=== PATIENT | male | born 1960 | race Caucasian/White ===

== ENCOUNTER 2016-11-09 16:47 | Emergency (ER) | payer MEDICAID ==
[~2016-11-09] VITALS: Ht 177.8 cm; Wt 92.6 kg
[~2016-11-09 16:47] MED LIST: ALPR0.5T6 PO; ASPI-496 PO; ATOR-2 PO; CHOL100012 PO; FLUO15CR2 TP; HYDR-3237 PO; LISI2.5T PO; METO25TA35 PO; PRAS10TA4 PO; TRAM50TA2 PO; VARE1TAB21 PO
[2016-11-09] MEDS ORDERED: OXYMETAZOLINE NASAL SPRAY 0.05%, 15ML NAS ONE (17:00)
[2016-11-09] MEDS ORDERED: SODIUM CHLORIDE FLUSH 10ML SYR IVF ONE (17:00)
[2016-11-09] MEDS ORDERED: OXYMETAZOLINE NASAL SPRAY 0.05%, 15ML ONE (17:11)
[2016-11-09] MEDS ORDERED: CLOP75TA52 PO (17:17)
[2016-11-09 17:18] LABS: HEMATOCRIT 45.9 % (39.2-51.8); HEMOGLOBIN 15.5 g/dL (13.7-18.0); WHITE BLOOD COUNT 15.3 x10^3/uL (3.4-10)
[2016-11-09 17:26] LABS: BLOOD UREA NITROGEN 25 mg/dL (7-18)
[2016-11-09 17:59] VITALS: BP 111/77
== END 2016-11-09 18:04 | disposition home or self-care (01) ==
LOC: ED 17:58
DX: R04.0 Epistaxis (principal); E78.5 Hyperlipidemia, unspecified; I11.0 Hypertensive heart disease with heart failure; I50.9 Heart failure, unspecified
CPT/HCPCS: 30901; 36415; 80048; 81003; 82040; 85025; 85610; 85730

== ENCOUNTER 2016-11-30 14:05 | Emergency (ER) | payer MEDICAID ==
[~2016-11-30] VITALS: Ht 177.8 cm; Wt 90.1 kg
[~2016-11-30 14:05] MED LIST changes: +CLOP75TA52 PO
[2016-11-30 15:18] LABS: HEMATOCRIT 45.3 % (39.2-51.8); WHITE BLOOD COUNT 10.8 x10^3/uL (3.4-10)
[2016-11-30] MEDS ORDERED: BACITRACIN ZINC OINT 500U/GM, 0.9 GM ONE (16:25)
[2016-11-30 16:35] VITALS: BP 95/55
== END 2016-11-30 16:38 | disposition home or self-care (01) ==
LOC: ED 16:31
DX: R31.0 Gross hematuria (principal); E78.5 Hyperlipidemia, unspecified; I10 Essential (primary) hypertension; Z95.0 Presence of cardiac pacemaker
CPT/HCPCS: 36415; 76770; 81001; 85025; 87086; 99285

== ENCOUNTER 2016-12-04 22:28 | Inpatient (IN) | payer MEDICAID ==
[~2016-12-04] VITALS: Ht 177.8 cm; Wt 88.5 kg
[2016-12-04] MEDS ORDERED: HYDROmorphone 1 MG/ML, 1ML ONE (22:44)
[2016-12-04] MEDS ORDERED: ONDANSETRON 2MG/ML, 2ML ONE (22:44)
[2016-12-04] MEDS ORDERED: FLUO10CA7 PO (22:53)
[2016-12-04 22:54] LABS: HEMATOCRIT 43.6 % (39.2-51.8); HEMOGLOBIN 14.6 g/dL (13.7-18.0); WHITE BLOOD COUNT 16.8 x10^3/uL (3.4-10)
[2016-12-04] MEDS ORDERED: ONDANSETRON 2MG/ML, 2ML IVPush ONE (23:00)
[2016-12-04] MEDS ORDERED: HYDROmorphone 1 MG/ML, 1ML IVPush PRN (23:00)
[2016-12-04 23:04] LABS: BLOOD UREA NITROGEN 19 mg/dL (7-18)
[2016-12-05] MEDS ORDERED: FENTANYL PF 100 MCG/2ML ONE ×2 (00:23→13:28)
[2016-12-05] MEDS ORDERED: FENTANYL PF 100 MCG/2ML IV ONE (00:30)
[2016-12-05] MEDS ORDERED: SODIUM CHLORIDE 0.9%, 500ML IVBOLUS ONE (00:30)
[2016-12-05] MEDS ORDERED: ONDANSETRON 2MG/ML, 2ML IVPush PRN ×2 (03:00→14:00)
[2016-12-05] MEDS ORDERED: ACETAMINOPHEN 325 MG TABLET PO PRN ×2 (03:00→14:00)
[2016-12-05] MEDS ORDERED: OXYcodone IR 5MG TABLET PO PRN (03:00)
[2016-12-05] MEDS ORDERED: TAMSULOSIN 0.4 MG CAP.ER.24H PO ONE (03:30)
[2016-12-05] MEDS ORDERED: TAMSULOSIN 0.4 MG CAP.ER.24H ONE ×2 (03:31)
[2016-12-05] MEDS: morphine SULFATE 10 MG/ML, 1ML IVPush PRN ×3 (05:03→12:33)
[2016-12-05] MEDS: LACTATED RINGERS 1,000 ML IV SCH ×2 (05:03→13:00)
[2016-12-05 05:08] VITALS: BP 105/66
[2016-12-05 07:30] VITALS: BP 98/65
[2016-12-05] MEDS ORDERED: METOPROLOL TARTRATE 25 MG TABLET PO SCH (09:00)
[2016-12-05 11:27] LABS: HEMATOCRIT 40.4 % (39.2-51.8); HEMOGLOBIN 13.3 g/dL (13.7-18.0); WHITE BLOOD COUNT 13.4 x10^3/uL (3.4-10)
[2016-12-05 11:38] LABS: BLOOD UREA NITROGEN 20 mg/dL (7-18)
[2016-12-05 12:43] LABS: PATH.CAST-FLAG NOT PRESENT; SPERM-FLAG NOT PRESENT; SRC-FLAG NOT PRESENT; XTAL-FLAG NOT PRESENT; YLC-FLAG NOT PRESENT
[2016-12-05] MEDS ORDERED: MIDAZOLAM 1 MG/ML, 2ML ONE (13:28)
[2016-12-05] MEDS ORDERED: PROPOFOL 10 MG/ML, 20ML ONE (13:29)
[2016-12-05] MEDS ORDERED: ONDANSETRON 2MG/ML, 2ML ONE (13:29)
[2016-12-05] MEDS ORDERED: LIDOCAINE-MPF 2% ,5ML ONE (13:29)
[2016-12-05] MEDS ORDERED: DEXAMETHASONE 4 MG/ML, 1ML ONE (13:29)
[2016-12-05] MEDS ORDERED: CEFAZOLIN 1,000 MG ONE (13:29)
[2016-12-05] MEDS ORDERED: PROMETHAZINE 25 MG/ML, 1ML IV PRN (14:00)
[2016-12-05] MEDS ORDERED: OXYcodone 5 MG/5 ML ORAL.SOL UDC PO PRN (14:00)
[2016-12-05] MEDS ORDERED: FENTANYL PF 100 MCG/2ML IV PRN (14:00)
[2016-12-05] MEDS ORDERED: MEPERIDINE/PF 25MG/0.5ML IVPush PRN (14:00)
[2016-12-05] MEDS ORDERED: hydrALAzine 20 MG/ML, 1ML IV PRN (14:00)
[2016-12-05] MEDS ORDERED: HYDROmorphone 1 MG/ML, 1ML IV PRN (14:00)
[2016-12-05] MEDS ORDERED: LABETALOL 5MG/ML, 20ML IV PRN (14:00)
[2016-12-05 15:59] VITALS: BP 97/62
[2016-12-05] MEDS ORDERED: PHENAZOPYRIDINE 200 MG TABLET PO PRN (16:30)
== END 2016-12-05 19:42 | disposition home or self-care (01) | DRG 669 ==
LOC: ED 23:20 → SUATTDRO 12-05 02:33 → EDIP 12-05 02:35 → 4WST 12-05 04:15
PROVIDERS: ADMIT Hospitalist; ATTEND Hospitalist
PROC: 0TC78ZZ Extirpation of Matter from Left Ureter, Via Natural or Artificial Opening Endoscopic (ICD-10-PCS; 2016-12-05)
PROC: 0T778DZ Dilation of Left Ureter with Intraluminal Device, Via Natural or Artificial Opening Endoscopic (ICD-10-PCS; 2016-12-05)
PROC: 0T9B70Z Drainage of Bladder with Drainage Device, Via Natural or Artificial Opening (ICD-10-PCS; principal; 2016-12-05 13:30)
DX: N13.2 Hydronephrosis with renal and ureteral calculous obstruction (principal); I11.0 Hypertensive heart disease with heart failure; I50.9 Heart failure, unspecified; Z86.74 Personal history of sudden cardiac arrest; E78.5 Hyperlipidemia, unspecified; I25.5 Ischemic cardiomyopathy; Z72.0 Tobacco use; Z95.0 Presence of cardiac pacemaker; Z95.810 Presence of automatic (implantable) cardiac defibrillator
CPT/HCPCS: 36415; 74176; 80048; 81001; 82040; 82360; 85025; 87086; 88300; 96361; 96374; 96375; J0690; J1100; J1170; J2250; J2405; J2704; J3010; J3490; C1758; C1769; C2617; J2270; J7040; J7120

== ENCOUNTER → 2018-03-26 | Outpatient (CLI) | payer MEDICARE ==
[~2018-03-26] MED LIST changes: +FLUO10CA7 PO
== END | disposition home or self-care (01) ==
LOC: CFH 09:35
PROVIDERS: ATTEND Internal Medicine Cardiovascular Disease
DX: I25.5 Ischemic cardiomyopathy (principal); I25.10 Atherosclerotic heart disease of native coronary artery without angina pectoris; I25.2 Old myocardial infarction; E78.5 Hyperlipidemia, unspecified; Z87.891 Personal history of nicotine dependence
CPT/HCPCS: C8929; Q9957

== ENCOUNTER 2018-11-20 09:51 | Outpatient (CLI) | payer MEDICARE | END 2018-11-20 23:59 | disposition home or self-care (01) | LOC: CFH 09:51 | PROVIDERS: ATTEND Internal Medicine Cardiovascular Disease | DX: I08.1 Rheumatic disorders of both mitral and tricuspid valves (principal); I25.10 Atherosclerotic heart disease of native coronary artery without angina pectoris | CPT/HCPCS: 93306 ==

== ENCOUNTER 2019-08-03 19:28 | Emergency (ER) | payer MEDICARE ==
[~2019-08-03] VITALS: Ht 180.3 cm; Wt 93.0 kg
[~2019-08-03 19:28] MED LIST changes: +FLUO10CA14 PO; -FLUO10CA7 PO
--- NOTE | 2019-08-03 19:35 | NUR ---
BIBA FOR C/O CP AND N/V X4 THAT BEGAN 2 HOURS AGO. PT HX OF CARDIAC ARREST, HI WITH STENT, AND AICD. GIVEN ASA 324MG BY EMS. PT STATES CP HAS SUBSIDED. ERP AT BEDSIDE FOR EVAL. PLACED ON CARDIAC AND VITAL SIGNS MONITORS.
[2019-08-03] MEDS ORDERED: TRAZ50TA66 PO (19:40)
[2019-08-03] MEDS ORDERED: SACU1TAB PO (19:53)
[2019-08-03] MEDS ORDERED: EZET10TA70 PO (19:55)
[2019-08-03] MEDS ORDERED: SODIUM CHLORIDE FLUSH 10ML SYR IVF ONE (20:00)
[2019-08-03] MEDS ORDERED: ONDANSETRON 2MG/ML, 2ML IVPush ONE (20:00)
[2019-08-03] MEDS ORDERED: MORPHINE SULFATE 4 MG/ML, 1ML IVPush PRN (20:00)
[2019-08-03] MEDS ORDERED: NITROGLYCERIN SINGLE TAB 0.4 MG SL PRN (20:00)
[2019-08-03] MEDS ORDERED: ONDANSETRON 2MG/ML, 2ML ONE (20:05)
--- NOTE | 2019-08-03 20:10 | NUR ---
PT DENIES N/V AT THIS TIME, AND REPORTS CP HAS SUBSIDED TO "ALMOST NOTHING". PLACED CALL LIGHT WITHIN REACH.
[2019-08-03 20:22] LABS: BASOPHILS # (AUTO) 0.05 x10^3/uL (0-0.1); BASOPHILS % (AUTO) 1 % (0-1); EOSINOPHILS # (AUTO) 0.28 x10^3/uL (0-0.4); EOSINOPHILS % (AUTO) 3 % (1-7); LYMPHOCYTES # (AUTO) 2.71 x10^3/uL (1-3.4); LYMPHOCYTES % (AUTO) 31 % (22-44); MD NO; MEAN CORPUSCULAR HEMOGLOBIN 32.1 pg (27.5-34.5); MEAN CORPUSCULAR HGB CONC 32.8 g/dL (33.2-36.2); MEAN CORPUSCULAR VOLUME 97.8 fL (81-97); MEAN PLATELET VOLUME 8.6 fL (7.4-10.4); MONOCYTES % (AUTO) 8 % (2-9); NEUTROPHILS # (AUTO) 5.04 x10^3/uL (1.8-6.8); NEUTROPHILS % (AUTO) 57 % (42-75); PLATELET COUNT 267 x10^3/uL (130-400); RED BLOOD COUNT 4.97 x10^6/uL (4.38-5.82); RED CELL DISTRIBUTION WIDTH 14.7 % (9.4-14.8)
[2019-08-03 20:24] LABS: ALANINE AMINOTRANSFERASE 64 U/L (12-78); ALBUMIN 3.7 g/dL (3.4-5.0); ANION GAP 6 mmol/L (5-15); CHLORIDE 108 mmol/L (98-107); CREATININE 1.01 mg/dL (0.7-1.3)
[2019-08-03 20:28] LABS: ALKALINE PHOSPHATASE 95 U/L (45-117); BILIRUBIN,TOTAL 0.7 mg/dL (0.2-1.0); TOTAL PROTEIN 7.2 g/dL (6.4-8.2); TROPONIN I < 0.015 ng/mL (0.000-0.045)
[2019-08-03 20:32] VITALS: BP 101/58
== END 2019-08-03 21:12 | disposition home or self-care (01) ==
LOC: ED 19:57
DX: I20.0 Unstable angina (principal); R11.2 Nausea with vomiting, unspecified; R94.31 Abnormal electrocardiogram [ECG] [EKG]; I11.0 Hypertensive heart disease with heart failure; I50.9 Heart failure, unspecified; E78.5 Hyperlipidemia, unspecified; Z95.5 Presence of coronary angioplasty implant and graft
CPT/HCPCS: 36415; 71045; 80053; 84484; 85025; 93005; 99285

== ENCOUNTER → 2020-04-05 | Outpatient (CLI) | payer MEDICARE ==
[~2020-04-05] MED LIST changes: -ALPR0.5T6 PO; +ALPR0.5T93 PO; +EZET10TA70 PO; -FLUO10CA14 PO; +FLUO10CA15 PO; +REGADENOSON 0.4 MG/5 ML SYRINGE ONE; +SACU1TAB PO; +TRAZ50TA66 PO
== END | disposition home or self-care (01) ==
LOC: CFH 12:29
PROVIDERS: ATTEND Internal Medicine Cardiovascular Disease
DX: I21.09 ST elevation (STEMI) myocardial infarction involving other coronary artery of anterior wall (principal); I25.10 Atherosclerotic heart disease of native coronary artery without angina pectoris
CPT/HCPCS: 78452; 93017; A9502; J2785

== ENCOUNTER 2020-06-17 13:43 | Outpatient (CLI) | payer MEDICARE ==
[~2020-06-17 13:43] MED LIST changes: -REGADENOSON 0.4 MG/5 ML SYRINGE ONE
== END 2020-06-17 23:59 | disposition home or self-care (01) ==
LOC: STAR 13:43
PROVIDERS: ATTEND Family Medicine
DX: Z20.822 Contact with and (suspected) exposure to COVID-19 (principal)
CPT/HCPCS: U0003